=== PATIENT | female | born 1930 | race Caucasian/White ===

== ENCOUNTER 2016-08-04 08:59 | Emergency (ER) | payer OTHER, MEDICARE ==
[~2016-08-04] VITALS: Ht 152.4 cm; Wt 63.5 kg
[~2016-08-04 08:59] MED LIST: AZITHROMYCIN250 M1 PO; CEFPODOXIME PR200 M2 PO; CHLORTHALIDONE25 M1 PO; LEVOFLOXACIN500 M1 PO; METOPROLOL SUCC50 M2 PO; PANTOPRAZOLE SO40 M1 PO; TYLENOL325 M1 PO
--- NOTE | 2016-08-04 09:04 | ED GI/GU/ABDOMINAL COMPLAINT ---
History of Present Illness General Chief Complaint: Abdominal Pain/Flank Pain Stated Complaint: ABDOMINAL PAIN AND SOB Source: patient Exam Limitations: no limitations Vital Signs & Intake/Output Vital Signs & Intake/Output SEE TRIAGE Allergies Coded Allergies: NO KNOWN ALLERGIES (04/11/13) Reconcile Medications Acetaminophen (Tylenol) 325 MG TABLET 1 TAB PO Q6P PRN pain or fever Azithromycin 250 MG TABLET 1 TAB PO DAILY Pneumonia Cefpodoxime Proxetil 200 MG TABLET 1 TAB PO BID Pneumonia Chlorthalidone 25 MG TABLET 0.5 TAB PO Friday leg swelling ( Reported) Metoprolol Succinate 50 MG TAB.ER.24H 1 TAB PO DAILY HTN (Reported) Pantoprazole Sodium 40 MG TABLET.DR 1 TAB PO DAILY gerd (Reported) Triage Nurses Notes Reviewed? yes ? N Is pt currently ? No Onset: Abrupt Duration: hour(s): (1) Timing: single episode today Quality/Severity: severe Location: generalized abdomen HPI: This is an 85-year-old female who presents by EMS from home for chief complaint of severe abdominal pain sudden in onset 1 hour prior to arrival. According to EMS she was recently discharged from the hospital after a bout of pneumonia. Patient arrives in severe distress, diaphoretic, ashen in color. She is writhing and complaining of severe pain and asking for help. Secondary to her clinical condition she is unable to give any more history. Past History Travel History Traveled to [place] past 21 day No Medical History Any Pertinent Medical History? see below for history Neurological: NONE EENT: NONE Cardiovascular: hypertension, hyperlipidemia Respiratory: NONE Gastrointestinal: NONE Hepatic: NONE Renal: NONE Musculoskeletal: S/P L ROTATOR CUFF REPAIR Psychiatric: NONE Endocrine: NONE Blood Disorders: NONE Cancer(s): BREAST S/P L MASTECTOMY EVENT SALES ASSISTANT/Reproductive: NONE History of MRSA: No History of VRE: No History of CDIFF: No Pneumonia Vaccine: 07/26/16 Influenza Vaccine: 07/26/16 Surgical History Surgical History: S/P L MASTECTOMY L ROTATOR CUFF REPAIR Psychosocial History Who do you live with Patient/Self Services at Home None What is your primary language Slovenian Family History Hx Contributory? No Review of Systems Review of Systems Constitutional: Reports: see HPI. GI: Reports: abdominal pain. Physical Exam Physical Exam General Appearance: alert, awake, anxious, severe distress, ASHEN APPEARANCE Head: atraumatic, normal appearance Eyes: Bilateral: PERRL. Ears, Nose, Throat, Mouth: hearing grossly normal, DRY MUCUS MEMBRANES Neck: supple, full range of motion Respiratory: TACHYPNEIC, LUNGS CTA Cardiovascular: tachycardia Peripheral Pulses: 2+ radial (R), 2+ radial (L) Gastrointestinal: GUARDING, DIFFUSELY TENDER, HYPOACTIVE BOWEL SOUNDS Extremities: normal range of motion Neurologic/Psych: awake, alert, ANXIOUS, SEVERE DISTRESS Skin: cyanosis, mottled Core Measures ACS in differential dx? Yes Severe Sepsis Present: No Septic Shock Present: No Progress Differential Diagnosis: AAA, ischemic bowel, PUD/GERD, perforated viscous, SBO, DISSECTION, SEPSIS, BACTEREMIA Plan of Care: Orders Procedure Date/time Status LACTIC ACID 08/04 1202 Active Telemetry/Forestry Laborer 08/04 09 Active TROPONIN LEVEL 08/04 09 Complete PARTIAL THROMBOPLASTIN TIME 08/04 09 Complete PROTHROMBIN TIME 08/04 09 Complete COMPREHENSIVE METABOLIC PANEL 08/04 09 Complete CBC WITHOUT DIFFERENTIAL 08/04 901 Complete EKG 08/04 09 Active TYPE & SCREEN (NOT X-MATCH) 08/04 09 Active Current Medications Sig/Mariajose Start time Last Medication Dose Stop Time Status Admin Dopamine HCl 400 MG ONCE ONE 08/04 0930 AC Dextrose/Water 500 ML 08/06 1129 (D5W) Laboratory Tests 08/04/16 0933: Anion Gap 17 H, Estimated GFR 59 L, BUN/Creatinine Ratio 18.9, Glucose 279 H, Calcium 8.9, Total Bilirubin 0.4, AST 34, ALT 38, Alkaline Phosphatase 70, Troponin I 0.26 *H, Total Protein 5.7 L, Albumin 2.7 L, Globulin 3.0, Albumin/ Globulin Ratio 0.9 L, PT 15.1 H, INR 1.44 H, APTT 32, CBC w Diff MAN DIFF ORDERED, RBC 3.79 L, MCV 88.1, MCH 28.3, RDW 17.0 H, MPV 7.6, Gran % 47.5, Lymphocytes % 41.2, Monocytes % 10.0 H, Eosinophils % 0.9, Basophils % 0.4, Absolute Granulocytes 8.3 H, Absolute Lymphocytes 7.2 H, Absolute Monocytes 1.8 H, Absolute Eosinophils 0.2, Absolute Basophils 0.1, Platelet Estimate VERIFIED BY SMEAR, Polychromasia 1+, Poikilocytosis 1+, Anisocytosis 1+, Ovalocytes 1+, PUBS MCHC 32.1 L SEE RESUSSCITATION SHEET. PATIENT SENT IMMEDIATELY TO CT AFTER IV ACCESS OBTAINED. THERE ON THE CT TABLE SHE BECAME APNEIC AND WENT INTO CARDIAC ARREST. PATIENT INTUBATED, RESUSSCITATED. IV FLUIDS GIVEN. PERSISTENT HYPOTENTION, PRESSORS STARTED. PATIENT RETURNED TO CT ON PRESSORS. PATIENT THEN CODED AGAIN ON THE TABLE DESPITE EPINEPHRINE INJECTIONS. PATIENT PRONOUCED. PATIENT'S SON CALLED IN DRAPER TO INFORM HIM OF HIS MOTHER'S EXPIRATION. (DEYA SOOD,KARISHMA) Diagnostic Imaging: Viewed by Me: CT Scan. Discussed w/RAD: CT Scan. Initial ED EKG: SINUS TACHYCARDIA Rhythm Strip: ASYSTOLE Comments: PATIENT: HEENA DELGADO PRESENT AGE: 85 PATIENT ACCOUNT NO: [id number] : 29 LOCATION: ER ORDERING PHYSICIAN: KARISHMA FALK MD SERVICE DATE: 08/04/16 EXAM TYPE: RAD - XRY-PORTABLE CHEST XRAY EXAMINATION: XR PORTABLE CHEST CLINICAL INFORMATION: Post intubation COMPARISON: Previous chest x-rays most recent 07/24/[address] 07/25/2016 TECHNIQUE: AP portable supine chest FINDINGS: There is a new endotracheal tube with tip 2 cm above the donnell. The cardiac and mediastinal contours are stable. There may be increased interstitial right perihilar lung markings. There is a small right pleural effusion. There is no pneumothorax. There is evidence of previous surgery to the left shoulder. IMPRESSION: Endotracheal tube 2 cm above the donnell. Question increased right perihilar interstitial markings. New small right pleural effusion. DICTATED BY: BERNARDA SAMANIEGO MD DATE/TIME DICTATED:08/04/16956 SKY LINE YARDER:NIMESH DATE/TIME TRANSCRIBED:08/04/16956 CONFIDENTIAL, DO NOT COPY WITHOUT APPROPRIATE AUTHORIZATION. <Electronically signed in Other Vendor System> SIGNED BY: BERNARDA SAMANIEGO MD [id number] PATIENT: HEENA DELGADO PRESENT AGE: 85 PATIENT ACCOUNT NO: [id number] : 29 LOCATION: ER ORDERING PHYSICIAN: KARISHMA FALK MD SERVICE DATE: 08/04/16 EXAM TYPE: CAT - CT HEAD WO IV CONTRAST EXAMINATION: CT HEAD WITHOUT CONTRAST CLINICAL INFORMATION: 85-year-old female with history of cardiac arrest and unresponsiveness. COMPARISON: MRI of head from 01/17/2012. TECHNIQUE: Contiguous axial imaging was performed from the skull base to vertex without intravenous administration of contrast. DLP: 529 mGy-cm. FINDINGS: No signs of acute major vascular territory infarction, hemorrhage, cerebral edema, extra-axial fluid collection, focal mass effect or midline shift. Mild atrophy of cerebral and cerebellar hemispheres associated with symmetric prominence of ventricles, sulci and cisterns. The calvarium is intact and the visualized paranasal sinuses, mastoid air cells and middle ear cavities are clear. No acute findings in the visualized portions of the orbits; bilateral ocular lens extractions are noted. IMPRESSION: No acute intracranial pathology compared to 01/17/2012. DICTATED BY: SLY VELIZ MD DATE/TIME DICTATED:08/04/161019 SKY LINE YARDER:NIMESH DATE/TIME TRANSCRIBED:08/04/161019 CONFIDENTIAL, DO NOT COPY WITHOUT APPROPRIATE AUTHORIZATION. <Electronically signed in Other Vendor System> SIGNED BY: SLY VELIZ MD 08/04/16 1029 Departure Departure Time of Disposition: 1001 Disposition: Condition: Stable Clinical Impression Primary Impression: Cardiac arrest Referrals: ARIES MEJIA APRN (PCP/Family) Referred to [facility] as new patient No Departure Forms: Customer Survey General Discharge Information Procedures Intubation Time of Intubation: 924 Intubation Method: orotracheal Tube Size (cm): 7.5 Medications: succinylcholine Breath Sounds After Intubation: equal Intubation Complications: no complications Post Intubation Xray? Yes Critical Care Note Critical Care Note Critical Care Time: 75-104 min
[2016-08-04 09:54] LABS: ABSOLUTE BASOPHIL COUNT 0.1 /CUMM (0.0-0.2); ABSOLUTE EOSINOPHIL COUNT 0.2 /CUMM (0.0-0.7); ABSOLUTE GRANULOCYTE CT 8.3 /CUMM (1.4-6.5); ABSOLUTE LYMPH COUNT 7.2 /CUMM (1.2-3.4); ABSOLUTE MONOCYTE COUNT 1.8 /CUMM (0.10-0.60); BASOPHIL % 0.4 % (0.0-2.0); EOSINOPHIL % 0.9 % (0-5); GRANULOCYTE % 47.5 % (42.2-75.2); HEMATOCRIT 33.3 % (37-47); MEAN CORPUSCULAR HGB 28.3 PG (27.0-31.0); MEAN CORPUSCULAR HGB CONC 32.1 G/DL (33.0-37.0); MEAN CORPUSCULAR VOLUME 88.1 FL (81.0-99.0); MEAN PLATELET VOLUME 7.6 FL (7.4-10.4); PLATELET COUNT 208 /CUMM (130-400); RED BLOOD CELL CT 3.79 /CUMM (4.20-5.40); WHITE BLOOD CELL COUNT 17.5 /CUMM (4.8-10.8)
[2016-08-04 09:59] LABS: PT 15.1 SEC (9.4-12.5); PTT 32 SEC (25-37)
--- NOTE | 2016-08-04 10:03 | RADIOLOGY REPORT ---
EXAMINATION: XR PORTABLE CHEST CLINICAL INFORMATION: Post intubation COMPARISON: Previous chest x-rays most recent 07/24/[address] 07/25/2016 TECHNIQUE: AP portable supine chest FINDINGS: There is a new endotracheal tube with tip 2 cm above the donnell. The cardiac and mediastinal contours are stable. There may be increased interstitial right perihilar lung markings. There is a small right pleural effusion. There is no pneumothorax. There is evidence of previous surgery to the left shoulder. IMPRESSION: Endotracheal tube 2 cm above the donnell. Question increased right perihilar interstitial markings. New small right pleural effusion.
--- NOTE | 2016-08-04 10:29 | CT SCAN REPORT ---
EXAMINATION: CT HEAD WITHOUT CONTRAST CLINICAL INFORMATION: 85-year-old female with history of cardiac arrest and unresponsiveness. COMPARISON: MRI of head from 01/17/2012. TECHNIQUE: Contiguous axial imaging was performed from the skull base to vertex without intravenous administration of contrast. DLP: 529 mGy-cm. FINDINGS: No signs of acute major vascular territory infarction, hemorrhage, cerebral edema, extra-axial fluid collection, focal mass effect or midline shift. Mild atrophy of cerebral and cerebellar hemispheres associated with symmetric prominence of ventricles, sulci and cisterns. The calvarium is intact and the visualized paranasal sinuses, mastoid air cells and middle ear cavities are clear. No acute findings in the visualized portions of the orbits; bilateral ocular lens extractions are noted. IMPRESSION: No acute intracranial pathology compared to 01/17/2012.
[2016-08-04 11:09] VITALS: BP 00/00
== END 2016-08-04 12:43 | disposition expired ==
LOC: ERH 08:59
PROVIDERS: Emergency Medicine
DX: I46.9 Cardiac arrest, cause unspecified (principal)
CPT/HCPCS: 1344; 1387; 93005; 93010; 94799; 96374; 96375; 96376; 99291; J1265; J7060